=== PATIENT | female | born 1940 | race Caucasian/White ===

== ENCOUNTER 2016-12-02 02:24 | Observation (INO) | payer OTHER ==
--- NOTE | ~2016-12-02 | CT16 ---
[facility] A Service of [facility] RADIOLOGY TEXT RESULTS PATIENT: DIANA HERNANDEZ LOCATION: [facility] 566-01 : 39 UNIT #: [id number] AGE: [address]: Koko Zuñiga MD SEX: F ORDER DR: [id number] [facility]. [place], [place] [address] [id number] I MR#: [id number] Acc #: [id number] NAME: DIANA HERNANDEZ. : 1940 SEX: F STUDY DATE/TIME: 12/02/2016 4:41 UNIT: [facility] ROOM: [facility] STUDY DESCRIPTION: CT Angio Chest for PE Attending Physician: Koko Zuñiga M.D. Ordering Physician: Leslie Murphy M.D. Primary Care Physician: No Primary Care Physician MEDICAL IMAGING REPORT This report is preliminary unless electronic signature is present EXAM CT chest PE protocol. HISTORY 76-year-old female left-sided chest pain palpitations since 12/01/2016 elevated D-dimer. TECHNIQUE This CT exam was performed with one or more of the following radiation dose reduction techniques: automatic control, adjustment of mA and/or kV according to patient size, and iterative reconstruction. FINDINGS Axial images performed through the chest following IV contrast. 3-D coronal and sagittal reconstructed images reviewed at a workstation. No acute airspace disease or consolidation. No effusions. Minimal basilar atelectasis. No evidence of pulmonary embolus. Aorta free of dissection or aneurysm. Coronary artery calcifications noted. Heart size within normal limits. SA small amount of calcified and noncalcified mediastinal adenopathy consistent with prior granulomatous disease. Upper abdomen unremarkable. Degenerative changes noted thoracic spine. The thoracic inlet unremarkable. Pacemaker noted over the left chest with leads in place. IMPRESSION No acute intrathoracic abnormality identified. In particular no evidence of pulmonary embolus. Dictated by... Christy Fish M.D. THIS IS AN ELECTRONICALLY VERIFIED REPORT Christy Fish M.D. at 12/03/2016 10:34 PM [facility] A Service of [facility] RADIOLOGY TEXT RESULTS PATIENT: DIANA HERNANDEZ LOCATION: [facility] 566-01 : 39 UNIT #: [id number] AGE: [address]: Koko Zuñiga MD SEX: F ORDER DR: DAVION/prettyr TD: 12/02/2016 07:57 JOB #: [id number] MEDICAL IMAGING REPORT Page 1 of 1 COPY
--- NOTE | ~2016-12-02 | ST ---
Unit #: [id number] #: [id number] Patient: DIANA HERNANDEZ [id number] [address] [address] [id number] I MR#: [id number] NAME: DIANA HERNANDEZ. : 1940 SEX: F STUDY DATE/TIME: 12/04/2016 UNIT: [facility] ROOM: 566 STUDY DESCRIPTION: Cardiac stress test. Attending Physician: Koko Zuñiga M.D. Primary Care Physician: No Primary Care Physician CARDIOLOGY REPORT EXAM Cardiac stress and Cardiolite imaging. PROCEDURE The patient underwent Lexiscan injection while at rest as well as technetium 99m Cardiolite 11.46 and 36.0 mCi at rest and stress respectively. Appropriate views were obtained. FINDINGS The resting ECG is normal. With stress there was nonspecific 0.[address] depression, but there were no dysrhythmias or heart block. The heart rate increased from 55 to 67. Blood pressure decreased from 136/69 to 114/52. Perfusion images demonstrate normal perfusion throughout the myocardium, both at rest and stress. There is diaphragmatic artifact which was more evident during rest than at stress. Summed stress scores is zero. Planar images demonstrate normal left ventricular and right ventricular size. Normal left ventricular and right ventricular size. There is no increased lung uptake and there is no significant patient motion noted. Gated perfusion wall motion analysis demonstrates normal wall motion throughout the myocardium with end-diastolic volume 92 ml, ejection fraction 58%. IMPRESSION 1. Myocardial perfusion scan demonstrates no ischemia or infarction. 2. Normal wall motion with excellent ejection fraction. 3. The patient may be discharged. Dictated by... Veronica Xiong/naveed TD: 12/04/2016 10:43 JOB #: [id number] Unit #: [id number] #: [id number] Patient: DIANA HERNANDEZ CARDIOLOGY REPORT Page 1 of 1 X Koko Zuñiga MD CARDIOLOGY REPORT
--- NOTE | ~2016-12-02 | CR72 ---
[facility] A Service of [facility] RADIOLOGY TEXT RESULTS PATIENT: DIANA HERNANDEZ LOCATION: [facility] 5[address] : 39 UNIT #: [id number] AGE: [address]: Koko Zuñiga MD SEX: F ORDER DR: [id number] [facility] [address] [facility]. [place], [place] [address] [id number] I MR#: [id number] #: [id number] NAME: DIANA HERNANDEZ. : 1940 SEX: F STUDY DATE/TIME: 12/02/2016 2:58 [facility]: [address] STUDY DESCRIPTION: CR Chest Single View Portable Attending Physician: Koko Zuñiga M.D. Ordering Physician: Leslie Murphy M.D. Primary Care Physician: No Primary Care Physician MEDICAL IMAGING REPORT This report is preliminary unless electronic signature is present EXAM Portable chest HISTORY Shortness of air chest pain onset tonight. COMPARISON 06/05/2008 FINDINGS Portable view of the chest demonstrate moderate lung volumes satisfactory technique. No infiltrates or effusions. Heart, mediastinum great vessels unremarkable. Dual lead pacemaker noted over the left chest with atrial ventricle leads in place. Vascular stent is noted in the left neck. No pneumothorax. IMPRESSION No acute disease Dictated by... Christy Fihs M.D. THIS IS AN ELECTRONICALLY VERIFIED REPORT Christy Fish M.D. at 12/03/2016 10:35 PM DAVION/julio c TD: 12/02/2016 07:36 JOB #: [id number] MEDICAL IMAGING REPORT Page 1 of 1 COPY
--- NOTE | ~2016-12-02 | EKG ---
PATIENT: DIANA HERNANDEZ UNIT #: [id number] Ventricular Rate: 57 BPM Atrial Rate: 57 BPM P-R Interval: 238 ms QRS Duration: 90 ms Q-T Interval: 400 ms QTC Calculation(Bezet): 389 ms P Hudgins: 60 degrees Calculated R Hudgins: 21 degrees Calculated T Hudgins: 45 degrees Diagnosis Line: Electronic atrial pacemaker Diagnosis Line: When compared with ECG of 02-DEC-2016 06:40, Diagnosis Line: (unconfirmed) Diagnosis Line: No significant change was found Diagnosis Line: Confirmed by AFIA MATIAS MD ([id number]) on 12/03/2016 Diagnosis Line: 10:09:10 AM INTERPRETING MD: FLORENCIO ALDRICH
--- NOTE | ~2016-12-02 | EKG ---
PATIENT: DIANA HERNANDEZ UNIT #: [id number] Ventricular Rate: 93 BPM Atrial Rate: 93 BPM P-R Interval: 188 ms QRS Duration: 84 ms Q-T Interval: 340 ms QTC Calculation(Bezet): 422 ms P Burg[place]: 53 degrees Calculated R Burg[place]: 1 degrees Calculated T Burgaw: 46 degrees Diagnosis Line: Normal sinus rhythm Diagnosis Line: Nonspecific ST abnormality Diagnosis Line: Otherwise normal ECG Diagnosis Line: When compared with ECG of 02-DEC-2016 02:33, Diagnosis Line: (unconfirmed) Diagnosis Line: Vent. rate has decreased BY 56 BPM Diagnosis Line: Borderline criteria for Anterior infarct are no Diagnosis Line: longer Present Diagnosis Line: ST no longer depressed in Inferior leads Diagnosis Line: ST no longer depressed in Lateral leads Diagnosis Line: T wave inversion no longer evident in Inferior Diagnosis Line: leads Diagnosis Line: T wave inversion no longer evident in Diagnosis Line: Anterolateral leads Diagnosis Line: Confirmed by AFIA MATIAS MD ([id number]) on 12/03/2016 Diagnosis Line: 9:57:22 AM INTERPRETING MD: FLORENCIO ALDRICH
--- NOTE | ~2016-12-02 | EKG ---
PATIENT: DIANA HERNANDEZ UNIT #: [id number] Ventricular Rate: 55 BPM Atrial Rate: 55 BPM P-R Interval: 220 ms QRS Duration: 90 ms Q-T Interval: 408 ms QTC Calculation(Bezet): 390 ms P Berne: 44 degrees Calculated R Berne: 3 degrees Calculated T Berne: 33 degrees Diagnosis Line: Atrial-paced rhythm with prolonged AV conduction Diagnosis Line: Abnormal ECG Diagnosis Line: When compared with ECG of 02-DEC-2016 02:43, Diagnosis Line: (unconfirmed) Diagnosis Line: Electronic atrial pacemaker has replaced Sinus Diagnosis Line: rhythm Diagnosis Line: Vent. rate has decreased BY 38 BPM Diagnosis Line: Confirmed by AFIA MATIAS MD ([id number]) on 12/03/2016 Diagnosis Line: 9:59:13 AM INTERPRETING MD: FLORENCIO ALDRICH
--- NOTE | ~2016-12-02 | TH ---
Unit #: [id number] #: [id number] Patient: DIANA HERNANDEZ [id number] [address] [address] [id number] I MR#: [id number] NAME: DIANA HERNANDEZ. : 1940 SEX: F STUDY DATE/TIME: 12/04/2016 UNIT: [facility] ROOM: 566 STUDY DESCRIPTION: Cardiolite imaging. Attending Physician: Koko Zuñiga M.D. Primary Care Physician: No Primary Care Physician CARDIOLOGY REPORT EXAM Cardiolite imaging. Results included in cardiac stress test report. Dictated by... Koko Zuñiga M.D. PJR/gz TD: 12/04/2016 10:55 JOB #: [id number] CARDIOLOGY REPORT Page 1 of 1 X Koko Zuñiga MD CARDIOLOGY REPORT
--- NOTE | ~2016-12-02 | HP ---
Unit #: [id number] #: [id number] Patient: DIANA HERNANDEZ [id number] [address] [address] [id number] I MR#: [id number] NAME: DIANA HERNANDEZ. ROOM: 566 Age: 76 Sex: F Admission Date: 12/02/2016 : 1940 Attending Physician: Koko Zuñiga M.D. Primary Care Physician: No Primary Care Physician HISTORY AND PHYSICAL CHIEF COMPLAINT Chest pain. HISTORY OF PRESENT ILLNESS She is a 76-year-old woman who has history of pacemaker, hypertension, diabetes and high cholesterol. She presented to the emergency room yesterday because of rapid rate. She was having PSVT. She (1) spontaneously. She also had some substernal chest pain with that. Right now she is pain free. She denies orthopnea, PND, palpitations, syncope. PAST MEDICAL HISTORY Past medical history is positive for congestive heart failure, hypertension, diabetes, high cholesterol. PAST SURGICAL HISTORY She had pacemaker placement in the past. FAMILY HISTORY Negative for premature coronary artery disease. SOCIAL HISTORY She does not smoke, does not drink. MEDICATIONS She takes Lasix 40 mg p.o. daily, Lipitor 20 mg daily. She is taking diabetic medicine. She also is taking Norvasc 5 mg daily, Coreg 12.5 mg b.i.d. REVIEW OF SYSTEMS All other systems were reviewed. They are negative except as mentioned in the HPI. PHYSICAL EXAMINATION GENERAL: She is not in any kind of distress, lying comfortably in bed. VITAL SIGNS: Heart rate is 68, blood pressure 140/60. She is breathing respiratory rate of 16. EYES: Conjunctiva normal. Pupils round and reactive. ENT: Oral mucosa is moist. No central cyanosis. NECK: She has no thyromegaly. Carotid upstroke is normal. JVD is not elevated. CHEST: She is breathing normally and clear on auscultation. CARDIAC EXAM: She has no parasternal lift. S1, S2 normally heard. No gallop. No murmur. Unit #: [id number] #: [id number] Patient: DIANA HERNANDEZ ABDOMEN: Soft. Liver and spleen are not enlarged. Abdominal aorta is not palpable. Guaiac test is not indicated. EXTREMITIES: She has no pedal edema; 2+ bilateral femoral and dorsalis pedis pulses. Digits have no clubbing. SKIN: No rash or abnormal pigmentation. NEUROLOGIC EXAM: She is oriented x3. PSYCHIATRIC: Mood is normal. MUSCULOSKELETAL: Muscle tone in all extremities is normal. DIAGNOSTIC STUDIES CARDIOVASCULAR: EKG - She definitely has SVT with rate of [address] and T changes. The most recent EKG is showing atrial paced rhythm; otherwise, normal. ASSESSMENT 1. PSVT. 2. Chest pain. 3. Hypertension. 4. High cholesterol. 5. Diabetes. PLAN 1. From a cardiac standpoint, I will increase her Coreg to 25 mg twice a day. 2. I will continue her other home meds. 3. I will do an echo to assess LV size and function. 4. I will also do a Lexiscan Cardiolite to rule out myocardial ischemia. 1. Dictated by Veronica Harmon/dominic TD: 12/02/2016 11:24 JOB #: [id number] HISTORY AND PHYSICAL Page 1 of 1 X Tank De La Torre MD HISTORY AND PHYSICAL
--- NOTE | ~2016-12-02 | DS ---
Unit #: [id number] #: [id number] Patient: DIANA HERNANDEZ [id number] [address] [address] [id number] I MR#: [id number] NAME: DIANA HERNANDEZ. ROOM: 566 Age: 76 Sex: F Admission Date: 12/02/2016 : 1940 Discharge Date: 12/03/2016 Attending Physician: Koko Zuñiga M.D. Primary Care Physician: No Primary Care Physician DISCHARGE SUMMARY ADMISSION DIAGNOSES 1. Paroxysmal supraventricular tachycardia. 2. History of a permanent pacemaker. 3. History of hypertension. 4. History of diabetes. 5. History of dyslipidemia. 6. History of congestive heart failure. DISCHARGE DIAGNOSES 1. Paroxysmal supraventricular tachycardia. 2. History of a permanent pacemaker. 3. History of hypertension. 4. History of diabetes. 5. History of dyslipidemia. 6. History of congestive heart failure. She was admitted. Myocardial infarction was ruled out with point of care troponin less than 0.05 and less than 0.05 and repeat troponins of less than 0.03 and less than 0.03. She underwent cardiac stress testing which is negative for ischemia. A 2-D echocardiogram revealed mild tricuspid regurgitation, right ventricular systolic pressure of 28, globally normal left ventricular systolic function, mild concentric left ventricular hypertrophy with a grade 2 diastolic dysfunction. On admission, she had a normal potassium as well as a normal magnesium. Her beta laya was increased and changed to Coreg 25 mg twice daily. On admission, her 12-lead EKG showed a sinus tachycardia with a ventricular rate of 145 and, at discharge, she had a ventricular rate of 57 and paced. DISCHARGE MEDICATIONS 1. Home medications that have been unchanged. 2. Acetaminophen 500 mg every six hours as needed for pain. 3. Keppra 500 mg three times daily. 4. Avandamet 08/999 mg one tab twice daily. 5. Claritin 10 mg daily. 6. Norvasc 10 mg daily. 7. Lasix 40 mg daily. 8. Lipitor 40 mg daily. 9. Lisinopril 10 mg daily. 10. Fish oil 1,000 mg daily. 11. Fosamax 70 mg weekly. 12. Plavix 75 mg daily. 13. Potassium 20 mEq daily. 14. Glimepiride 2 mg daily. 15. Eye vitamin daily. Unit #: [id number] #: [id number] Patient: DIANA HERNANDEZ 16. Her Lopressor was discontinued and she was changed to Coreg 25 mg twice daily. Her Digoxin was discontinued. She will follow up with her primary care physician with [facility] in three days. The [facility] nurse is here prior to discharge. Plan/results were all discussed with the [facility] nurse. Dictated by... Cecille Higgins, Lora.P.R.N. for Koko Zuñiga M.D. JOSE/casey TD: 12/03/2016 13:43 JOB #: [id number] DISCHARGE SUMMARY Page 1 of 1 X X DISCHARGE SUMMARY
--- NOTE | ~2016-12-02 | EKG ---
PATIENT: DIANA HERNANDEZ UNIT #: [id number] Ventricular Rate: 149 BPM Atrial Rate: 163 BPM P-R Interval: 202 ms QRS Duration: 74 ms Q-T Interval: 236 ms QTC Calculation(Bezet): 371 ms P [place]: 49 degrees Calculated R [place]: 15 degrees Calculated T [place]: -127 degrees Diagnosis Line: Sinus tachycardia Diagnosis Line: Cannot rule out Anterior infarct Poor R wave Diagnosis Line: progression questionable lead position or body Diagnosis Line: habitus Diagnosis Line: Marked ST abnormality, possible inferior Diagnosis Line: subendocardial injury Diagnosis Line: Marked ST abnormality, possible septal Diagnosis Line: subendocardial injury Diagnosis Line: Abnormal ECG Diagnosis Line: No previous ECGs available Diagnosis Line: Confirmed by AFIA MATIAS MD ([id number]) on 12/03/2016 Diagnosis Line: 9:57:01 AM INTERPRETING MD: FLORENCIO ALDRICH
[~2016-12-02 02:24] MED LIST: ACETAMINOPHEN PO; ASPIRIN; AVANDAMET 2 MG/1 TAB PO; BIDIL PO; BLOOD PRESSURE PILL; CIPRO PO; COREG; COREG PO; COUMADIN; DILANTIN; DILANTIN PO; EYE VITAMIN PO; FISH OIL 1,0001 CAP PO; IMDUR PO; KEPPRA500 MG PO; KEPPRA750 MG PO; KLOR-CON PO; LASIX PO; NIACIN500 M1 PO; NORCO1 TAB 10/3 PO; NORVASC PO; PLAVIX PO; PROTONIX PO; SIMCOR 500-21 BOTTLE PO; TOPROL XL; TRILEPTAL; TRILEPTAL PO; ZOCOR PO
[2016-12-02 02:58] LABS: BASOPHIL% 0.4 % (0-2.5); EOSINOPHIL# 0.2 X10e3 (0-0.7); EOSINOPHIL% 1.9 % (0.0-7.0); HEMATOCRIT 40.9 % (35.0-45.0); HEMOGLOBIN 13.2 gm/dL (12.0-16.0); LYMPHOCYTE# 2.5 X10e3 (1.0-3.5); LYMPHOCYTE% 21.3 % (17.0-45.0); MEAN CELL VOLUME 79.8 FL (83-96); MEAN CORPUSCULAR HEMOGLOBIN 25.8 PG (28-34); MEAN CORPUSCULAR HGB CONC 32.3 g/dL (30-36); MEAN PLATELET VOLUME 8.6 FL (6.5-11.5); MONOCYTE# 0.9 X10e3 (0-1.0); NEUTROPHIL# 7.9 X10e3 (1.5-7.1); NEUTROPHIL% 68.4 % (40-75); PLATELET COUNT 228 X10e3 (140-420); RED BLOOD COUNT 5.13 X10e (3.90-5.30); RED CELL DISTRIBUTION WIDTH 15.8 % (11.0-15.5); WHITE BLOOD COUNT 11.6 X10e3 (4.0-10.5)
[2016-12-02 02:59] LABS: DIFF IND NO
[2016-12-02 03:03] LABS: POC - CKMB 1.3 ng/mL (0.0-7.9); POC - TROPONIN <0.05 ng/mL (<=0.05)
[2016-12-02 03:12] LABS: INR 2.2; PROTHROMBIN TIME (PATIENT) 24.1 SECONDS (9.6-11.5)
[2016-12-02 03:22] LABS: ALBUMIN SERUM 4.5 g/dL (3.5-5.0); BILIRUBIN,TOTAL 0.4 mg/dL (0.2-2.0); BUN/CREATININE RATIO 21.25; CALCIUM SERUM 9.7 mg/dL (8.4-10.2); CREATININE SERUM 0.8 mg/dL (0.6-1.4); GLOM FILT RATE Estimated 71.2 mL/min (>60); MAGNESIUM 1.9 mg/dL (1.6-3.0); POTASSIUM 3.8 mmol/L (3.5-5.1); PROTEIN TOTAL SERUM 8.2 g/dL (6.0-8.3)
[2016-12-02 03:36] LABS: BILIRUBIN, DIRECT 0.1 mg/dL (0.0-0.2); BILIRUBIN,INDIRECT 0.3 mg/dL (0.0-0.9)
[2016-12-02 04:38] LABS: POC - CKMB <1.0 ng/mL (0.0-7.9); POC - TROPONIN <0.05 ng/mL (<=0.05)
[2016-12-02] MEDS ORDERED: ALENDRONATE SOD70 M1 PO (06:06)
[2016-12-02] MEDS ORDERED: LIPITOR40 MG (06:08)
[2016-12-02] MEDS ORDERED: LIPITOR40 MG PO (06:09)
[2016-12-02] MEDS ORDERED: [UNRECOGNIZED DRUG - REMARK] PO (06:11)
[2016-12-02] MEDS ORDERED: DIGOXIN125 MCG PO (06:12)
[2016-12-02] MEDS ORDERED: GLIMEPIRIDE2 MG PO (06:12)
[2016-12-02] MEDS ORDERED: LISINOPRIL10 MG PO (06:14)
[2016-12-02] MEDS ORDERED: ALLERGY10 M1 PO (06:16)
[2016-12-02 12:05] LABS: CK TOTAL 39 IU/L (26-140)
[2016-12-02 16:40] LABS: CK TOTAL 38 IU/L (26-140)
[2016-12-02 22:37] LABS: CK TOTAL 34 IU/L (26-140)
[2016-12-03] MEDS ORDERED: CARVEDILOL25 MG PO (15:44)
== END 2016-12-03 18:34 | disposition home or self-care (01) ==
LOC: CED 02:24 → CEDOF 05:45 → C5C 06:09 → CEDOF 06:09 → C5C 06:09 → CED 06:09 → CEDOF 07:46 → C5C 07:46
PROVIDERS: Student in an Organized Health Care Education/Training Program
DX: I47.1 Supraventricular tachycardia (principal); Z95.0 Presence of cardiac pacemaker; R07.9 Chest pain, unspecified; I10 Essential (primary) hypertension; E78.00 Pure hypercholesterolemia, unspecified; E11.9 Type 2 diabetes mellitus without complications; I08.1 Rheumatic disorders of both mitral and tricuspid valves; Z86.79 Personal history of other diseases of the circulatory system
CPT/HCPCS: 36415; 71010; 71275; 78452; 80048; 80076; 82550; 82553; 82947; 83735; 83880; 84484; 85025; 85379; 85610; 85730; 93005; 93017; 93306; 94760; 96372; 96374; 96375; 99285; A9500; G0378; J1650; J2270; J2405; J2785; Q9967